=== PATIENT | female | born 1975 | race Caucasian/White ===

== ENCOUNTER 2018-04-02 18:02 | Emergency (ER) | payer OTHER ==
[~2018-04-02] VITALS: Ht 167.6 cm; Wt 65.8 kg
[~2018-04-02 18:02] MED LIST: EPIN.3I IM; PRED20 PO; RANI150 PO; XYZAL; ZOLP5 PO
[2018-04-02 18:33] LABS: BASOPHILS PERCENT AUTO 0 % (0-2); EOSINOPHILS ABSOLUTE AUTO 0.03 K/mm3 (0.00-0.68); EOSINOPHILS PERCENT AUTO 1 % (0-6); Hemoglobin 14.8 g/dL (11.5-16.0); IMMATURE GRAN ABSOLUTE AUTO 0.02 K/mm3 (0.00-0.10); IMMATURE GRAN PERCENT AUTO 0 % (0-1); LYMPHOCYTES ABSOLUTE AUTO 0.98 K/mm3 (0.84-5.20); LYMPHOCYTES PERCENT AUTO 15 % (21-46); MONOCYTES ABSOLUTE AUTO 0.27 K/mm3 (0.16-1.47); MONOCYTES PERCENT AUTO 4 % (4-13); Mean Corpuscular HGB 32.5 pg (26.0-34.0); Mean Corpuscular HGB Conc 34.4 g/dL (31.5-36.5); Mean Corpuscular Volume 94 fL (80-100); Mean Platelet Volume 8.5 fL (9.1-12.4); NEUTROPHILS ABSOLUTE AUTO 5.06 K/mm3 (1.96-9.15); NEUTROPHILS PERCENT AUTO 80 % (41-73); Platelet Count 221 K/mm3 (150-400); RDW Coefficient Variation 12.1 % (11.7-14.2); RDW Standard Deviation 41.9 fL (35.1-46.3); Red Blood Cell Count 4.56 M/mm3 (3.80-5.20); White Blood Cell Count 6.36 K/mm3 (4.00-11.30)
[2018-04-02 18:51] LABS: Alanine Aminotransfer (ALT/SGP 29 U/L (12-78); Albumin, Blood 3.9 g/dL (3.4-5.0); Albumin/Globulin Ratio 1.1 (0.8-1.8); Alk Phos 47 U/L (50-136); Anion Gap 8 mmol/L (6-16); Aspartate Aminotrans (AST/SGOT 22 U/L (12-37); Bilirubin, Total 0.5 mg/dL (0.1-1.0); Blood Urea Nitrogen 12 mg/dL (8-24); Bun/Creatinine Ratio 14.9 (12.0-20.0); CO2, Blood 25 mmol/L (21-32); Calcium, Blood 8.8 mg/dL (8.5-10.1); Chloride, Blood 106 mmol/L (98-108); Creatinine, Blood 0.81 mg/dL (0.40-1.00); Ethanol (Alcohol), Blood, Med <3 mg/dL; Globulin, Blood 3.5 g/dL (2.2-4.0); Glomerular Filtration Rate >60 (60-); Glucose, Blood 85 mg/dL (70-99); Potassium, Blood 3.6 mmol/L (3.5-5.5); Sodium, Blood 139 mmol/L (136-145); Total Protein, Blood 7.4 g/dL (6.4-8.2)
[2018-04-02] MEDS ORDERED: RANI150 PO (21:04)
[2018-04-02] MEDS ORDERED: PRED20 PO (21:04)
[2018-04-02] MEDS ORDERED: CETI5 PO (21:05)
[2018-04-02] MEDS ORDERED: CELE200 PO (21:07)
== END 2018-04-02 21:13 | disposition home or self-care (01) ==
LOC: ER 18:02
PROVIDERS: Physician Assistant
DX: G45.9 Transient cerebral ischemic attack, unspecified (principal); Z79.899 Other long term (current) drug therapy
CPT/HCPCS: 70450; 80053; 82947; 85025; 93005; 93010; 99284; G0480

== ENCOUNTER 2018-05-14 14:20 | Day surgery (SDC) | payer OTHER ==
[~2018-05-14] VITALS: Ht 167.6 cm; Wt 75.0 kg
[~2018-05-14 14:20] MED LIST changes: +CELE200 PO; +CETI5 PO
== END 2018-05-14 15:59 | disposition home or self-care (01) ==
LOC: ORSCSDS 14:20
PROVIDERS: Anesthesiology
PROC: 3E0R33Z Introduction of Anti-inflammatory into Spinal Canal, Percutaneous Approach (ICD-10-PCS; principal; 2018-05-14 15:30)
DX: M54.12 Radiculopathy, cervical region (principal); Z79.899 Other long term (current) drug therapy
CPT/HCPCS: J1040; J2250; J3010

== ENCOUNTER 2019-05-08 12:24 | Day surgery (SDC) | payer OTHER, SELFPAY ==
[~2019-05-08] VITALS: Ht 167.6 cm; Wt 75.7 kg
== END 2019-05-08 16:27 | disposition home or self-care (01) ==
LOC: ORSCSDS 12:24
PROVIDERS: Anesthesiology
PROC: 3E0R33Z Introduction of Anti-inflammatory into Spinal Canal, Percutaneous Approach (ICD-10-PCS; principal; 2019-05-08 15:45)
DX: M54.16 Radiculopathy, lumbar region (principal)
CPT/HCPCS: J1040

== ENCOUNTER 2020-01-29 11:11 | Day surgery (SDC) | payer OTHER, SELFPAY ==
[~2020-01-29] VITALS: Ht 167.6 cm; Wt 75.9 kg
== END 2020-01-29 13:21 | disposition home or self-care (01) ==
LOC: ORSCSDS 11:11
PROVIDERS: Anesthesiology
PROC: 3E0R33Z Introduction of Anti-inflammatory into Spinal Canal, Percutaneous Approach (ICD-10-PCS; principal; 2020-01-29 12:00)
DX: M54.16 Radiculopathy, lumbar region (principal); Z79.899 Other long term (current) drug therapy
CPT/HCPCS: J1040